=== PATIENT | female | born 1940 | race Caucasian/White ===

== ENCOUNTER → 2016-04-13 | Outpatient (CLI) | payer OTHER, BC | LOC: MMPC 09:00 | PROVIDERS: ATTEND Nurse Practitioner Family | DX: E53.8 Deficiency of other specified B group vitamins (principal) | CPT/HCPCS: G0463; J3420 ==

== ENCOUNTER → 2016-05-18 | Outpatient (CLI) | payer OTHER, BC | LOC: MMPC 09:00 | PROVIDERS: ATTEND Nurse Practitioner Family | DX: E53.8 Deficiency of other specified B group vitamins (principal) | CPT/HCPCS: G0463; J3420 ==

== ENCOUNTER → 2016-06-06 | Outpatient (CLI) | payer OTHER, BC ==
[2016-06-06 10:21] LABS: BILIRUBIN,TOTAL 1.3 mg/dL (0.3-1.2); BUN/CREATININE RATIO 15.71 (6-20); CALCIUM 9.6 mg/dL (8.7-10.7); CREATININE 0.7 mg/dL (0.50-1.20); LDL CHOLESTEROL,CALCULATED 47.8 mg/dL; POTASSIUM 3.6 meq/L (3.8-5.2)
[2016-06-06 10:22] LABS: HEMOGLOBIN A1C 6.39 % (4.2-6.0); MEAN BLOOD GLUCOSE (CALC) 126.787 mg/dL
== END ==
LOC: LAB 08:04
PROVIDERS: ATTEND Nurse Practitioner Family
DX: E11.9 Type 2 diabetes mellitus without complications (principal); I10 Essential (primary) hypertension; E78.5 Hyperlipidemia, unspecified; G60.9 Hereditary and idiopathic neuropathy, unspecified
CPT/HCPCS: 36415; 80048; 82247; 82465; 82550; 82977; 83036; 83718; 84075; 84450; 84460; 84478

== ENCOUNTER → 2016-06-09 | Outpatient (CLI) | payer OTHER, BC | LOC: MMPC 09:00 | PROVIDERS: ATTEND Nurse Practitioner Family | DX: E11.9 Type 2 diabetes mellitus without complications (principal); I10 Essential (primary) hypertension; G60.9 Hereditary and idiopathic neuropathy, unspecified; K21.9 Gastro-esophageal reflux disease without esophagitis | CPT/HCPCS: 99214; G0463 ==

== ENCOUNTER → 2016-06-16 | Outpatient (CLI) | payer OTHER, BC | LOC: MMPC 09:00 | PROVIDERS: ATTEND Nurse Practitioner Family | DX: E53.8 Deficiency of other specified B group vitamins (principal) ==

== ENCOUNTER → 2016-09-06 | Outpatient (CLI) | payer OTHER, BC ==
[2016-09-06 08:22] LABS: HEMOGLOBIN A1C 6.34 % (4.2-6.0)
[2016-09-06 08:51] LABS: CREATININE, URINE 185.1 MG/DL (15-500)
[2016-09-06 08:53] LABS: BUN/CREATININE RATIO 21.42 (6-20); CALCIUM 9.3 mg/dL (8.7-10.7); SERUM ALBUMIN 4.4 g/dL (3.5-4.8)
== END ==
LOC: LAB 07:57
PROVIDERS: ATTEND Nurse Practitioner Family
DX: E11.9 Type 2 diabetes mellitus without complications (principal); E78.5 Hyperlipidemia, unspecified; I10 Essential (primary) hypertension
CPT/HCPCS: 36415; 80053; 82043; 82607; 83036

== ENCOUNTER → 2016-09-09 | Outpatient (CLI) | payer OTHER, BC | LOC: MMPC 09:00 | PROVIDERS: ATTEND Nurse Practitioner Family | DX: E11.9 Type 2 diabetes mellitus without complications (principal); I10 Essential (primary) hypertension; E53.8 Deficiency of other specified B group vitamins | CPT/HCPCS: 99213; G0463 ==